=== PATIENT | female | born 1980 | race Caucasian/White ===

== ENCOUNTER 2017-04-22 07:33 | Emergency (ER) | payer MEDICAID ==
[2017-04-22] MEDS ORDERED: ORPHENADRINE CITRATE 30 MG/ML VIAL IM ONE (08:09)
[2017-04-22] MEDS ORDERED: ORPHENADRINE CITRATE 30 MG/ML VIAL ONE (08:18)
[2017-04-22 08:30] LABS: Hematocrit 34.2 % (37.0-47.0); Hemoglobin 11.3 gm/dL (12.5-16.0); Mean Cell Volume 93.7 fl (78-100); Mean Platelet Volume 10.5 fl (6.0-9.5); Neutrophil # 13.6 K/mm3 (1.3-6.0); Neutrophil % 83.9 % (42-75.0); Platelet Count 316 K/mm3 (150-450); Red Blood Count 3.65 M/mm3 (4.2-5.4); Red Cell Distribution Width 12.9 % (11.5-14.0); White Blood Count 16.2 K/mm3 (4.0-10.5)
--- NOTE | 2017-04-22 08:41 | ERNOTE ---
Date of Service: 04/22/17 Time Seen by Provider: 04/22/17 08:03 Stated Complaint: RIGHT SIDE/SHOULDER, SOB/HAS BRONCHITIS Presenting Symptoms:: cough Source: patient Immunizations: IMMUNIZATION HX Immunizations Up to Date Yes History of Influenza Vaccine No Hx Pneumococcal Vaccination No Allergies/Adverse Reactions: Allergies carisoprodol [From Soma] Allergy (Severe, Verified 04/22/17 07:49) Anaphylaxis Home Medications: HOME MEDICATIONS Insulin Lispro [Humalog] 10 unit SQ HS 10/31/12 [Last Taken Unknown] Lisdexamfetamine Dimesylate [Vyvanse] 40 mg PO DAILY 12/30/15 [Last Taken Unknown] OLANZapine [Zyprexa] 20 mg PO DAILY 12/30/15 [Last Taken Unknown] Albuterol Sulfate [Proair Hfa] 2 puff IH Q4H PRN #1 inhaler 04/22/17 [Last Taken Unknown] HYDROcodone/ACETAMINOPHEN [[place] 5-325] 1 tab PO Q8H PRN #20 tab 04/22/17 [Last Taken Unknown] Levofloxacin [Levaquin] 500 mg PO DAILY #14 tab 04/22/17 [Last Taken Unknown] Pantoprazole Sodium [Protonix] 20 mg PO DAILY 04/22/17 [Last Taken Unknown] oxyCODONE HCL/ACETAMINOPHEN [Percocet 5 MG/325 MG] 1 tab PO BID 04/22/17 [Last Taken Unknown] - History of Present Ilness Narrative: Patient presents to the ED with right sided pain. She has been sick since April 13. This started with a cough and fever. Fever was 103. This lasted for 3 days, the fever went away but the cough and right sided CP continued. She was seen Friday by her doctor and stated on PCN for the cough. She presents primaryl for right sided CP that is worse with movement, cough and deep breathing. Right sided CP is noted to be severe. She is immediately requesting pain medications. Her cough is productive and she feels like she is wheezing. No true SOB. Right sided CP is her entire right chest. COnstant for well over 1 week. Timing: constant Severity: severe Frequency/Possible Cause: Reports: other - Illness Modifying Factors - Improves: Reports: nothing Modifying Factors - Worsens: Reports: coughing, deep breath Associated Symptoms: Reports: cough Prior Treatment: Reports: recently seen, treated by physician Review of Systems - Review of Systems Constitutional: Present: fever ENT: Present: nose congestion Respiratory: Present: cough Cardiology: Present: chest pain Gastrointestinal/Abdominal: Absent: abdominal pain Genitourinary: Absent: dysuria Musculoskeletal: Present: See HPI Skin: Absent: rash Neurological: Absent: weakness - Patient's Past Medical History Patient History - Medical: ADHD, Bipolar, Diabetes Type 2 Insulin Dependent Patient History - Cardiac/Respiratory: Asthma, Bronchitis Patient History - Cancer: No Hx of Cancer Patient History - Surgical Procedures: No surgical history, Other Patient History - Other: None LMP (females 10-50): 1 month - Social History Living Situations: significant other Abuse History: No History of abuse Psych History: Hx of Depression, Hx of Bipolar Disorder Smoking Status: Current every day smoker Have you smoked in the past 12 months: Yes Do you dip or chew tobacco: No Alcohol Use: none Drug Use: none - Immunizations Immunizations Up to Date: Yes Hx Pneumococcal Vaccination: No History of Influenza Vaccine: No Physical Exam - Physical Exam General Appearance: Present: alert, other - frequent harsh cough. No other distress. Speaking in full sentences. Head Exam: Present: normal inspection, no evidence of injury Eye Exam: Normal inspection: bilateral, PERRL: bilateral Ears, Nose, Throat: Present: normal ENT inspection Neck: Present: normal inspection Respiratory: Present: no respiratory distress, normal breath sounds, no accessory muscle use, lungs clear Cardiovascular/Chest: Present: regular rate, rhythm, normal peripheral pulses, chest tenderness, other - there is significant tenderness right chest wall. this seems to reproduce her pain Gastrointestinal/Abdominal: Present: normal bowel sounds, nontender, nondistended, soft, no organomegaly Back Exam: Present: normal range of motion Extremity Exam: Present: normal inspection, other - no DVT findings Neurological Exam: Present: alert, normal mood/affect, no motor/sensory deficits Skin Exam: Present: normal color, warm/dry ED Progress - Results and Orders Patient's Lab Results:: I have reviewed the patient's lab results. - Vital Signs Patient's Vital Signs:: I have reviewed the patient's vital signs. Vital Signs: Vital Signs 04/22/17 07:43 Pulse Rate 101 H Respiratory 18 Rate Blood Pressure 153/82 O2 Sat by Pulse 100 Oximetry - EKG EKG: NSR EKG read: Interp. by me EKG Comments: NSR rate 82. Non-specific ST/T wave changes, no STEMI - X-Ray X-Ray #1 X-Ray: chest Interpretation: Interp. by me X-ray Comments: I reviewed official radiology report - CT/Ultrasound CT/Ultrasound Narrative: I reviewed official CT radiology report - Progress/Reassessment Chief Complaint: Cough Progress Note-Subjective: 04/22/17 13:31 Patient did not take her insulin, her home insulin was given and her BS came down nicely. No evidence of DKA. She has pneumonia and I gave IV Abx. No hypoxia or respiratory distress. Nothing to suggest PE, aortic dissection or ACS. Her Sx are pleuritic and also musculoskeletal in nature. I ofered her observation but she declines this and wishes to go home. Understands risks and benefits. Will treat with Levaquin and pain meds and I stressed need for office f/u with PCP in 1-2 days for a re-check. I discussed warnign signs and reasons to return as well as the need for close f/u. Pneumonia with pleural effusion, no other clear acute life threats found at this time. Departure Clinical Impression: Pleurisy, Pneumonia - Departure Disposition: Home self-care Condition: Stable Instructions: Pleurisy, [id number], Community-Acquired Pneumonia, Adult, Easy -to-Read Additional Instructions: Rest. Fluids. Take your scheduled insulin as directed. Stop current antibiotic and begin new antibiotic. No driving with pain medications. Follow- up with your doctor in 1-2 days for a re-check. Return if you change your mind about observation, develop fever, trouble breathing or if your condition worsens or changes in any way. Referrals: Elio Huntley MD [Primary Care Provider] - Prescriptions: Albuterol Sulfate [Proair Hfa] 2 puff IH Q4H PRN #1 inhaler PRN Reason: Shortness Of Breath HYDROcodone/ACETAMINOPHEN [[place] 5-325] 1 tab PO Q8H PRN #20 tab PRN Reason: Pain Levofloxacin [Levaquin] 500 mg PO DAILY #14 tab
[2017-04-22 08:49] LABS: ALT 28 U/L (19-67); AST 23 U/L (0-48); Albumin * 2.3 gm/dl (3.4-5.0); Alkaline Phosphatase * 177 U/L (50-170); Anion Gap 11.4 mmol/L (6.8-13.8); BUN/Creatinine Ratio 11.7 (9.0-21.6); Bilirubin, Total 0.1 mg/dL (0.0-1.1); Blood Urea Nitrogen 11 mg/dL (3-23); Ca. Corrected For Albumin 10.2 mg/dL (8.4-10.2); Calcium * 9.2 mg/dL (7.9-10.9); Chloride 96 mmol/L (97-106); Lipase 55 U/L (73-393); Potassium 4.4 mmol/L (3.4-4.6); Sodium 129 mmol/L (132-142); Total Protein 6.9 gm/dL (6.2-8.2)
[2017-04-22 08:50] LABS: Troponin I Less than 0.017 ng/ml (0.00-0.10)
[2017-04-22 08:54] LABS: Urine Bilirubin Negative (NEGATIVE); Urine Blood Negative /ul (NEGATIVE); Urine Ketone Negative (NEGATIVE); Urine Nitrite Negative (NEGATIVE); Urine Protein Negative (NEGATIVE); Urine Specific Gravity <=1.005 SP.GR. (1.005-1.010); Urine Urobilinogen Normal (NORMAL)
[2017-04-22 09:05] LABS: Urine Appearance Clear; Urine Bacteria None Seen; Urine Color Pale Yellow; Urine RBC None Seen /hpf (0-5); Urine WBC None Seen /hpf (0-5)
[2017-04-22] MEDS ORDERED: MORPHINE SULFATE 4 MG/ML SYRG IV ONE ×2 (09:05→12:52)
[2017-04-22 09:06] LABS: Glucose * 816 mg/dL (70-110)
[2017-04-22] MEDS ORDERED: NORMAL SALINE 1,000 ML IV ONE (09:06)
[2017-04-22] MEDS ORDERED: KETOROLAC TROMETHAMINE 30 MG/ML VIAL IV ONE (09:13)
[2017-04-22] MEDS ORDERED: KETOROLAC TROMETHAMINE 30 MG/ML VIAL ONE (09:26)
[2017-04-22] MEDS ORDERED: MORPHINE SULFATE 4 MG/ML SYRG ONE ×3 (09:26→13:12)
[2017-04-22] MEDS ORDERED: INSULIN LISPRO 100 UNITS/ML VIAL SC ONE (09:50)
[2017-04-22] MEDS ORDERED: INSULIN LISPRO PROTAMIN/LISPRO 100 UNITS/ML VIAL SC ONE (10:00)
[2017-04-22] MEDS ORDERED: INSULIN LISPRO 100 UNITS/ML VIAL ONE (10:35)
[2017-04-22] MEDS ORDERED: ONDANSETRON HCL/PF 2 MG/ML VIAL IV ONE (10:44)
[2017-04-22] MEDS ORDERED: ONDANSETRON HCL/PF 2 MG/ML VIAL ONE (10:46)
[2017-04-22] MEDS ORDERED: ALBUTEROL SULFATE/IPRATROPIUM 3 ML NEBU IH ONE ×2 (11:44→11:45)
[2017-04-22] MEDS ORDERED: LEVOFLOXACIN/D5W 500 MG/100 ML BAG IV SCH (13:00)
[2017-04-22 13:52] VITALS: BP 101/47
== END 2017-04-22 14:21 | disposition home or self-care (01) ==
LOC: ER 07:33
DX: R09.1 Pleurisy (principal); J18.9 Pneumonia, unspecified organism; F17.200 Nicotine dependence, unspecified, uncomplicated
CPT/HCPCS: 36415; 71020; 71275; 80053; 81001; 82009; 83690; 84484; 85025; 85379; 93005; 94640; 96365; 96372; 96375; 99284; G0481; J2405

== ENCOUNTER 2019-02-27 14:48 | Inpatient (IN) ==
[2019-02-27] MEDS ORDERED: NORMAL SALINE 1,000 ML IV ONE ×4 (15:15→20:22)
[2019-02-27] MEDS ORDERED: diphenhydrAMINE HCL 50 MG/ML VIAL IV ONE ×2 (15:16→17:00)
[2019-02-27] MEDS ORDERED: PROCHLORPERAZINE EDISYLATE 5 MG/ML VIAL IV ONE (15:16)
[2019-02-27] MEDS ORDERED: KETOROLAC TROMETHAMINE 30 MG/ML VIAL IV ONE (15:17)
--- NOTE | 2019-02-27 15:17 | ERNOTE ---
Medical Problem HPI - Narrative Date of Service: 02/27/19 - General Chief Complaint: Diabetes Related Problem Time Seen by Provider: 02/27/19 15:06 Source: patient Exam Limitations: no limitations - Immun/Allergies/Home Medications Immunizations: IMMUNIZATION HX Immunizations Up to Date Yes History of Influenza Vaccine Yes Hx Pneumococcal Vaccination Yes Allergies/Adverse Reactions: Allergies carisoprodol [From Soma] Allergy (Severe, Verified 02/27/19 15:00) Anaphylaxis Home Medications: HOME MEDICATIONS Insulin Lispro [Humalog] 85 unit SQ HS 10/31/12 [Last Taken Unknown] Lisdexamfetamine Dimesylate [Vyvanse] 40 mg PO DAILY 12/30/15 [Last Taken Unknown] OLANZapine [Zyprexa] 20 mg PO DAILY 12/30/15 [Last Taken Unknown] Albuterol Sulfate [Proair Hfa] 2 puff IH Q4H PRN #1 inhaler 04/22/17 [Last Taken Unknown] Levofloxacin [Levaquin] 500 mg PO DAILY #14 tab 04/22/17 [Last Taken Unknown] Pantoprazole Sodium [Protonix] 20 mg PO DAILY 04/22/17 [Last Taken Unknown] Ranitidine HCl 300 mg PO BID 02/27/19 [Last Taken Unknown] - History of Present History Narrative: Patient presents to the ED for "DKA". SHe relates that her blood sugars are out of control She states she has been taking her Insulin but another person in the room told the nurse that likely was not the case. She tells me that she suffers with bipolar and that makes controlling her blood sugar hard. Was just admitted [facility] recently. No vomiting. Hurts "all over". No specific SP or SOB. Diffuse abdominal pain. No cough or fever. Nothign seems to make this better or worse. She is requesting something for pain. Timing: constant, getting worse Severity: severe Modifying Factors - (Improves): Present: other - nothing Modifying Factors - (Worsens): Present: other - nothing Review of Systems - Review of Systems Constitutional: Absent: fever EYE: Absent: vision changes ENT: Absent: sore throat Respiratory: Absent: shortness of breath Cardiology: Absent: chest pain Gastrointestinal/Abdominal: Present: abdominal pain Genitourinary: Absent: dysuria Musculoskeletal: Present: See HPI Skin: Absent: rash Neurological: Absent: weakness All Other Systems: All systems neg except as marked Medical History (Updated 02/27/19 @ 15:00 by Penny Ngo RN) ADD (attention deficit disorder) Anxiety Bipolar depression Diabetes Pancreatitis Surgical History: Surgical History (Updated 02/27/19 @ 15:00 by Penny Ngo RN) History of carpal tunnel surgery History of pancreatic surgery History of tubal ligation Family History: Family History (Updated 02/27/19 @ 15:00 by Penny Ngo RN) Other No pertinent family history Social History: (Last Reviewed 02/27/19 @ 18:34 by Pieter Cruz MD) Tobacco: Smoking Status: Current every day smoker Smoking cigarettes per day: 20 Alcohol: alcohol intake: never Substance Use: substance use type: does not use Physical Exam - Physical Exam General Appearance: Present: alert, mild distress Head Exam: Present: normal inspection, no evidence of injury Eye Exam: Normal inspection: bilateral, PERRL: bilateral Ears, Nose, Throat: Present: dry mucous membranes. Absent: pharyngeal erythema Neck: Present: normal inspection Respiratory: Present: no respiratory distress, normal breath sounds, no accessory muscle use, lungs clear Cardiovascular/Chest: Present: normal peripheral pulses, tachycardia Gastrointestinal/Abdominal: Present: normal bowel sounds, nondistended, soft, other - mild diffuse tenderness to deep palpation. No guarding or rebound, no peritoneal signs Back Exam: Absent: CVA tenderness (R), CVA tenderness (L) Extremity Exam: Present: normal inspection, normal range of motion Neurological Exam: Present: alert, no motor/sensory deficits Skin Exam: Present: normal color, warm/dry Progress - Results and Orders Patient's Lab Results:: I have reviewed the patient's lab results. - Vital Signs Patient's Vital Signs:: I have reviewed the patient's vital signs. Vital Signs: Vital Signs 02/27/19 14:49 Temperature 35.5 C L Pulse Rate 112 H Respiratory Rate 18 Blood Pressure 132/106 H O2 Sat by Pulse Oximetry 99 - EKG EKG #1 EKG: NSR EKG read: Interp. by or EKG Comments: NSR rate 90. Non-specific ST/T wave changes, no STEMI noted - X-Ray X-Ray #1 X-Ray: chest Interpretation: Interp. by me X-ray Comments: I reviewed the official radiology report - CT/Ultrasound CT/Ultrasound Narrative: I reviewed the official radiology report for CT abd/pelvis - Progress/Reassessment Chief Complaint: Diabetes Related Problem Progress Note-Subjective: 02/27/19 18:36 IV fluids given X 3L. IV insulin bolus and IV insulin drip. No Toradol was given. Dehydrated. No other inciting causes found. D/W Dr Gurrola who will admit. Patient agreeable. Departure Clinical Impression: Hyperosmolar non-ketotic state in patient with type 2 diabetes mellitus, Hyperglycemia due to type 2 diabetes mellitus, LIDA (acute kidney injury), Dehydration, Elevated lactic acid level, Abdominal pain - Departure Disposition: Still a patient Condition: Fair Referrals: Elio Huntley MD [Primary Care Provider] -
[2019-02-27] MEDS ORDERED: ACETAMINOPHEN 1,000 MG/100 ML BTL IV ONE (15:26)
[2019-02-27 15:41] LABS: Hematocrit 52.5 % (37.0-47.0); Hemoglobin 15.4 gm/dL (12.5-16.0); Mean Cell Volume 106.9 fl (78-100); Mean Corpuscular Hemoglobin 31.4 pg (27-31); Mean Corpuscular Hgb Conc 29.3 g/dl (32-36); Mean Platelet Volume 12.3 fl (8-12.5); Neutrophil # 6.5 K/mm3 (1.3-6.0); Neutrophil % 86.2 % (42-75.0); Platelet Count 303 K/mm3 (150-450); Red Blood Count 4.91 M/mm3 (4.2-5.4); Red Cell Distribution Width 13.4 % (11.5-14.0); White Blood Count 7.6 K/mm3 (4.0-10.5)
[2019-02-27 15:51] LABS: Urine Appearance Clear (CLEAR); Urine Color Yellow
[2019-02-27 15:52] LABS: Urine Bilirubin Negative (NEGATIVE); Urine Blood Negative /ul (NEGATIVE); Urine Ketone Negative (NEGATIVE); Urine Nitrite Negative (NEGATIVE); Urine Protein Negative (NEGATIVE); Urine Specific Gravity 1.005 SP.GR. (1.005-1.010); Urine Urobilinogen Normal (NORMAL); Urine pH 5.5 pH (5.0-7.0)
[2019-02-27 15:53] LABS: Urine Bacteria None Seen; Urine RBC None Seen /hpf (0-5); Urine WBC 0-5 /hpf (0-5)
[2019-02-27 15:54] LABS: Hemoglobin A1C 11.5 % (4.00-6.0)
[2019-02-27 16:05] LABS: Cocaine Ur Negative (NEGATIVE); Urine Barbiturate Negative (NEGATIVE); Urine Benzodiazepines Negative (NEGATIVE); Urine Opiates Negative (NEGATIVE); Urine PCP Negative (NEGATIVE); Urine THC Negative (NEGATIVE)
[2019-02-27 16:11] LABS: AST 24 U/L (0-48); Albumin * 4.1 gm/dl (3.4-5.0); Alkaline Phosphatase * 246 U/L (50-170); Anion Gap 22.9 mmol/L (6.8-13.8); BUN/Creatinine Ratio 13.5 (9.0-21.6); Bilirubin, Total 0.1 mg/dL (0.0-1.1); Blood Urea Nitrogen 27 mg/dL (3-23); Ca. Corrected For Albumin 9.4 mg/dL (8.4-10.2); Calcium * 9.8 mg/dL (7.9-10.9); Carbon Dioxide 20.6 mmol/L (24-32.6); Chloride 81 mmol/L (97-106); Lipase 42 U/L (73-393); Potassium 4.5 mmol/L (3.4-4.6); Total Protein 8.3 gm/dL (6.2-8.2)
[2019-02-27 16:15] LABS: Glucose * 1594 mg/dL (70-110); Sodium 120 mmol/L (132-142)
[2019-02-27] MEDS ORDERED: INSULIN REGULAR, HUMAN 100 UNITS/ML VIAL IV ONE (16:16)
[2019-02-27] MEDS ORDERED: INSULIN REGULAR, HUMAN 100 UNITS in NORMAL SALINE 100 ML IV PRN ×4 (16:16→20:26)
[2019-02-27 16:20] LABS: ALT 32 U/L (19-67)
[2019-02-27] MEDS ORDERED: MORPHINE SULFATE 4 MG/ML SYRG IV ONE (16:37)
[2019-02-27] MEDS ORDERED: ACETAMINOPHEN 325 MG TABLET PO PRN (19:38)
[2019-02-27 19:40] LABS: Albumin * 3.5 gm/dl (3.4-5.0); Anion Gap 23.5 mmol/L (6.8-13.8); BUN/Creatinine Ratio 14.6 (9.0-21.6); Bilirubin, Total 0.2 mg/dL (0.0-1.1); Ca. Corrected For Albumin 9.3 mg/dL (8.4-10.2); Calcium * 9.2 mg/dL (7.9-10.9); Carbon Dioxide 14.8 mmol/L (24-32.6); Potassium 4.3 mmol/L (3.4-4.6); Total Protein 7.3 gm/dL (6.2-8.2)
[2019-02-27] MEDS ORDERED: NICOTINE 21 MG PATC TD SCH (19:45)
--- NOTE | 2019-02-27 20:12 | HP ---
Chief Complaint - Chief Complaint Date of Service: 02/27/19 Time of Service: 20:08 History of Present Illness: Naya Cain is a 38-year-old white female with past medical history of diabetes mellitus type 1, bipolar disorder, ADD, chronic pancreatitis who was admitted on 02/27/2019 after presenting to the emergency room with a chief complaint "I think I have DKA". The patient just recently got discharged from "[facility] presumably for DKA 9 days ago. The patient says that because of her depression/bipolar disorder she sleeps most of the time and forgets to fill her insulin pump with medicine. Her blood sugar mostly are out of control. She denies any nausea or vomiting, diarrhea or constipation, shortness of breath, chest pain, fever or chills but admits to diffuse abdominal pain and hurting all over. In the emergency room her blood sugar was 1594, creatinine of 2, anion gap of 22.9, CO2 20.6, lactic acid of 12.5, HbA1c of 11.5 equivalent to mean blood glucose of 297, lipase of 42, normal WBC. She was negative for ketones in the serum and in the urine. Her urine drug screen was negative. Her ABG showed a pH of 7.39, PCO2 of 15.5, oxygen of 145.1, HCO3 of 9.2, oxygen saturation of 98.9%. She was given 10 units of IV regular insulin in the ER and was started on insulin drip. She was then admitted to the SCU unit. Medical History (Updated 02/27/19 @ 21:08 by Hilda Gurrola MD) ADD (attention deficit disorder) Anxiety Bipolar depression Diabetes Pancreatitis Surgical History: Surgical History (Updated 02/27/19 @ 15:00 by Penny Ngo RN) History of carpal tunnel surgery History of pancreatic surgery History of tubal ligation Family History: Family History (Updated 02/27/19 @ 15:00 by Penny Ngo RN) Other No pertinent family history Social History: (Last Reviewed 02/27/19 @ 18:34 by Pieter Cruz MD) Tobacco: Smoking Status: Current every day smoker Smoking cigarettes per day: 20 Alcohol: alcohol intake: never Substance Use: substance use type: does not use Review Of Systems (GEN) - Review of Systems Generalized/Overall Review: Absent: Weakness, Chills, Fever EENTM: Absent: Blurred Vision Respiratory: Absent: Cough, Shortness of Breath, Orthopnea Cardiac: Absent: Chest Pain, Edema, Palpitations Abdominal: Present: Abdominal Pain. Absent: Nausea, Vomiting, Hematemesis Genitourinary: Absent: Urgency, Frequency Musculoskeletal: Present: Other - pain all over Neurological: Present: Anxiety, Depressed. Absent: Headache Skin: Absent: Lesions, Rash Endocrine: Present: Increased Hunger Immunizations: IMMUNIZATION HX Immunizations Up to Date Yes History of Influenza Vaccine Yes Hx Pneumococcal Vaccination Yes Allergies/Adverse Reactions: Allergies Allergy/AdvReac Type Severity Reaction Status Date / Time carisoprodol [From Soma] Allergy Severe Anaphylaxis Verified 02/27/19 15:00 Home Medications: HOME MEDICATIONS Lisdexamfetamine Dimesylate [Vyvanse] 40 mg PO DAILY 12/30/15 [Last Taken Unknown] OLANZapine [Zyprexa] 20 mg PO DAILY 12/30/15 [Last Taken Unknown] Albuterol Sulfate [Proair Hfa] 2 puff IH Q4H PRN #1 inhaler 04/22/17 [Last Taken Unknown] Ranitidine HCl 300 mg PO BID 02/27/19 [Last Taken Unknown] Exam - Exam Vital Signs: Vital Signs - Last Taken Temp 36.6 C 02/27/19 18:36 Pulse 88 02/27/19 18:49 Resp 14 02/27/19 18:49 BP 110/63 02/27/19 18:49 Pulse Ox 96 02/27/19 18:49 Constitutional: Present: Alert, Oriented x3, Cooperative ENT Exam: Present: hearing grossly normal Eye Exam: bilateral eye: normal inspection, PERRL, EOMI Neck: Present: supple. 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 nml as tested, no motor/sensory deficits, oriented x 3 Diagnostic Studies: Abnormal Lab Results 02/27/19 02/27/19 02/27/19 Range/Units 15:25 15:25 15:25 Hct 52.5 H (37.0-47.0) % MCV 106.9 H (78-100) fl MCH 31.4 H (27-31) pg MCHC 29.3 L (32-36) g/dl Neutrophils % 86.2 H (42-75.0) % Lymphocytes % 9.9 L (20-51) % Neutrophils # 6.5 H (1.3-6.0) K/mm3 Lymphocytes # 0.75 L (1.5-3.5) k/mm3 pCO2 (32.0-45.0) mmHg pO2 (83.0-108.0) mmHg HCO3 (21.0-28.0) mmol/L Total CO2 (19.0-24.0) mmol/L Base Excess (-2.0-3.0) mmol/L ABG O2 Sat (Measured) (94.0-98.0) % Sodium 120 L (132-142) mmol/L Plasma Sodium 144 H (130-142) mmol/L Chloride 81 L (97-106) mmol/L Carbon Dioxide 20.6 L (24-32.6) mmol/L Anion Gap 22.9 H (6.8-13.8) mmol/L BUN 27 H (3-23) mg/dL Creatinine 2.00 H (0.4-1.4) mg/dL Est GFR (Non-Af Amer) 30 L D (60-130) mL/min Random Glucose 1594 H (70-110) mg/dL Hemoglobin A1c (4.00-6.0) % Lactic Acid, Venous 12.5 H* (0.4-2.0) mmol/L Alkaline Phosphatase 246 H (50-170) U/L Total Protein 8.3 H (6.2-8.2) gm/dL Lipase 42 L (73-393) U/L Urine Glucose (UA) (NEGATIVE) mg/dL 02/27/19 02/27/19 02/27/19 Range/Units 15:25 15:44 15:47 Hct (37.0-47.0) % MCV (78-100) fl MCH (27-31) pg MCHC (32-36) g/dl Neutrophils % (42-75.0) % Lymphocytes % (20-51) % Neutrophils # (1.3-6.0) K/mm3 Lymphocytes # (1.5-3.5) k/mm3 pCO2 15.5 L* (32.0-45.0) mmHg pO2 145.1 H (83.0-108.0) mmHg HCO3 9.2 L (21.0-28.0) mmol/L Total CO2 9.7 L (19.0-24.0) mmol/L Base Excess -12.5 L (-2.0-3.0) mmol/L ABG O2 Sat (Measured) 98.9 H (94.0-98.0) % Sodium (132-142) mmol/L Plasma Sodium (130-142) mmol/L Chloride (97-106) mmol/L Carbon Dioxide (24-32.6) mmol/L Anion Gap (6.8-13.8) mmol/L BUN (3-23) mg/dL Creatinine (0.4-1.4) mg/dL Est GFR (Non-Af Amer) (60-130) mL/min Random Glucose (70-110) mg/dL Hemoglobin A1c 11.5 H (4.00-6.0) % Lactic Acid, Venous (0.4-2.0) mmol/L Alkaline Phosphatase (50-170) U/L Total Protein (6.2-8.2) gm/dL Lipase (73-393) U/L Urine Glucose (UA) >=1000 H (NEGATIVE) mg/dL 02/27/19 Range/Units 18:15 Hct (37.0-47.0) % MCV (78-100) fl MCH (27-31) pg MCHC (32-36) g/dl Neutrophils % (42-75.0) % Lymphocytes % (20-51) % Neutrophils # (1.3-6.0) K/mm3 Lymphocytes # (1.5-3.5) k/mm3 pCO2 (32.0-45.0) mmHg pO2 (83.0-108.0) mmHg HCO3 (21.0-28.0) mmol/L Total CO2 (19.0-24.0) mmol/L Base Excess (-2.0-3.0) mmol/L ABG O2 Sat (Measured) (94.0-98.0) % Sodium (132-142) mmol/L Plasma Sodium (130-142) mmol/L Chloride (97-106) mmol/L Carbon Dioxide (24-32.6) mmol/L Anion Gap (6.8-13.8) mmol/L BUN (3-23) mg/dL Creatinine (0.4-1.4) mg/dL Est GFR (Non-Af Amer) (60-130) mL/min Random Glucose (70-110) mg/dL Hemoglobin A1c (4.00-6.0) % Lactic Acid, Venous 9.0 H* (0.4-2.0) mmol/L Alkaline Phosphatase (50-170) U/L Total Protein (6.2-8.2) gm/dL Lipase (73-393) U/L Urine Glucose (UA) (NEGATIVE) mg/dL Laboratory Results WBC 7.6 K/mm3 (4.0-10.5) 02/27/19 15:25 RBC 4.91 M/mm3 (4.2-5.4) 02/27/19 15:25 Hgb 15.4 gm/dL (12.5-16.0) 02/27/19 15:25 Hct 52.5 % (37.0-47.0) H 02/27/19 15:25 MCV 106.9 fl (78-100) H 02/27/19 15:25 MCH 31.4 pg (27-31) H 02/27/19 15:25 MCHC 29.3 g/dl (32-36) L 02/27/19 15:25 RDW 13.4 % (11.5-14.0) 02/27/19 15:25 Plt Count 303 K/mm3 (150-450) 02/27/19 15:25 MPV 12.3 fl (8-12.5) 02/27/19 15:25 Immature Gran % (Auto) 0.40 % (0.001-0.429) 02/27/19 15:25 Immature Gran # (Auto) 0.03 K/mm3 (0.000-0.0310) 02/27/19 15:25 86.2 % (42-75.0) H 02/27/19 15:25 9.9 % (20-51) L 02/27/19 15:25 3.2 % (0.0-9) 02/27/19 15:25 0.0 % (0.0-3.0) 02/27/19 15:25 0.3 % (0.0-1.0) 02/27/19 15:25 Nucleated RBC % 0.0 k/mm3 (0-1) 02/27/19 15:25 6.5 K/mm3 (1.3-6.0) H 02/27/19 15:25 0.75 k/mm3 (1.5-3.5) L 02/27/19 15:25 0.2 k/mm3 (0.0-1.0) 02/27/19 15:25 0.0 k/mm3 (0.0-0.7) 02/27/19 15:25 Absolute Basophils 0.0 k/mm3 (0.0-0.1) 02/27/19 15:25 pCO2 15.5 mmHg (32.0-45.0) L* 02/27/19 15:47 pO2 145.1 mmHg (83.0-108.0) H 02/27/19 15:47 HCO3 9.2 mmol/L (21.0-28.0) L 02/27/19 15:47 Total CO2 9.7 mmol/L (19.0-24.0) L 02/27/19 15:47 Base Excess -12.5 mmol/L (-2.0-3.0) L 02/27/19 15:47 ABG pH 7.39 (7.35-7.45) 02/27/19 15:47 ABG O2 Sat (Measured) 98.9 % (94.0-98.0) H 02/27/19 15:47 Sodium 120 mmol/L (132-142) L 02/27/19 15:25 144 mmol/L (130-142) H 02/27/19 15:25 Potassium 4.5 mmol/L (3.4-4.6) 02/27/19 15:25 Chloride 81 mmol/L (97-106) L 02/27/19 15:25 Carbon Dioxide 20.6 mmol/L (24-32.6) L 02/27/19 15:25 22.9 mmol/L (6.8-13.8) H 02/27/19 15:25 BUN 27 mg/dL (3-23) H 02/27/19 15:25 2.00 mg/dL (0.4-1.4) H 02/27/19 15:25 Est GFR (Non-Af Amer) 30 mL/min (60-130) L D 02/27/19 15:25 13.5 (9.0-21.6) 02/27/19 15:25 1594 mg/dL (70-110) H 02/27/19 15:25 297 mg/dL 02/27/19 15:25 11.5 % (4.00-6.0) H 02/27/19 15:25 9.0 mmol/L (0.4-2.0) H* 02/27/19 18:15 Calcium 9.8 mg/dL (7.9-10.9) 02/27/19 15:25 Calcium Adj for Albumin 9.4 mg/dL (8.4-10.2) 02/27/19 15:25 Magnesium 2.0 mg/dL (1.2-2.8) 02/27/19 15:25 0.1 mg/dL (0.0-1.1) 02/27/19 15:25 AST 24 U/L (0-48) 02/27/19 15:25 ALT 32 U/L (19-67) 02/27/19 15:25 246 U/L (50-170) H 02/27/19 15:25 8.3 gm/dL (6.2-8.2) H 02/27/19 15:25 4.1 gm/dl (3.4-5.0) 02/27/19 15:25 42 U/L (73-393) L 02/27/19 15:25 Serum HCG, Qual Negative (NEGATIVE) 02/27/19 15:25 Yellow 02/27/19 15:44 Clear (CLEAR) 02/27/19 15:44 5.5 pH (5.0-7.0) 02/27/19 15:44 Ur Specific [place] 1.005 SP.GR. (1.005-1.010) 02/27/19 15:44 Negative mg/dL (NEGATIVE) 02/27/19 15:44 >=1000 mg/dL (NEGATIVE) H 02/27/19 15:44 Negative mg/dL (NEGATIVE) 02/27/19 15:44 Negative /ul (NEGATIVE) 02/27/19 15:44 Negative (NEGATIVE) 02/27/19 15:44 Negative mg/dl (NEGATIVE) 02/27/19 15:44 Normal EU/dl (NORMAL) 02/27/19 15:44 Ur Leukocyte Esterase Negative /ul (NEGATIVE) 02/27/19 15:44 None seen /hpf (0-5) 02/27/19 15:44 0-5 /hpf (0-5) 02/27/19 15:44 Ur Epithelial Cells None seen /hpf (0-5) 02/27/19 15:44 None seen (NONE) 02/27/19 15:44 No culture indicated 02/27/19 15:44 Negative (NEGATIVE) 02/27/19 15:44 Negative (NEGATIVE) 02/27/19 15:44 Ur Phencyclidine Scrn Negative (NEGATIVE) 02/27/19 15:44 Urine Amphetamine Negative (NEGATIVE) 02/27/19 15:44 U Benzodiazepines Scrn Negative (NEGATIVE) 02/27/19 15:44 Negative (NEGATIVE) 02/27/19 15:44 Negative (NEGATIVE) 02/27/19 15:44 Ethyl Alcohol Less than 3.0 mg/dL (0.0-10.0) 02/27/19 15:25 Negative (NEGATIVE) 02/27/19 15:25 Assessment/Plan - Narrative Narrative: Connie Cain is a 38-year-old white female was admitted for hyperosmolar nonketotic hyperglycemic state without coma due to missed medications. She was given 10 units of regular insulin and started on insulin drip at 7 units/h in the emergency room. Her follow-up blood sugar was 872 in the unit. She is hungry and is wanting to eat. We will allow her to eat now and adjust her insulin drip as she is not in ketoacidosis. We will continue with her insulin drip and IV fluids. We will try not to drop her blood sugar by more than 70 mg/DL /hour. We will likely start her on SQ insulin before before her meals in the morning and then later put her back in her insulin pump. We will need to get her insulin pump dosage. - Assessment/Plan (1) Diabetic hyperosmolar non-ketotic state Assessment: in DM type 1. Problem: Acute (2) LIDA (acute kidney injury) Problem: Acute (3) Dehydration Problem: Acute (4) Elevated lactic acid level Problem: Acute (5) Abdominal pain Problem: Acute
[2019-02-27] MEDS: NORMAL SALINE IV SCH (21:31)
[2019-02-27] MEDS: POTASSIUM CHLORIDE IV SCH (21:31)
[2019-02-27 22:08] LABS: Anion Gap 11.8 mmol/L (6.8-13.8); Calcium * 8.6 mg/dL (7.9-10.9); Carbon Dioxide 26.3 mmol/L (24-32.6); Potassium 4.1 mmol/L (3.4-4.6)
[2019-02-27] MEDS ORDERED: traZODone HCL 150 MG TABLET PO SCH (23:00)
[2019-02-27] MEDS ORDERED: OLANZapine 5 MG TABLET PO SCH (23:00)
[2019-02-27] MEDS ORDERED: DOXEPIN HCL 25 MG CAPSULE PO SCH (23:00)
[2019-02-27] MEDS ORDERED: traZODone HCL 50 MG TABLET PO SCH (23:00)
[2019-02-28] MEDS: DEXTROSE 5%-0.5 NORMAL SALINE 1,000 ML IV PRN ×2 (01:15→06:32)
[2019-02-28 05:50] LABS: Hematocrit 31.6 % (37.0-47.0); Hemoglobin 10.9 gm/dL (12.5-16.0); Mean Cell Volume 89.8 fl (78-100); Mean Corpuscular Hgb Conc 34.5 g/dl (32-36); Neutrophil # 6.3 K/mm3 (1.3-6.0); Neutrophil % 53.1 % (42-75.0); Platelet Count 195 K/mm3 (150-450); Red Blood Count 3.52 M/mm3 (4.2-5.4); Red Cell Distribution Width 12.6 % (11.5-14.0); White Blood Count 11.9 K/mm3 (4.0-10.5)
[2019-02-28 06:11] LABS: Anion Gap 9.3 mmol/L (6.8-13.8); BUN/Creatinine Ratio 16.7 (9.0-21.6); Calcium * 7.8 mg/dL (7.9-10.9); Potassium 3.3 mmol/L (3.4-4.6)
[2019-02-28] MEDS: INSULIN LISPRO 100 UNITS/ML VIAL SC SCH ×2 (06:59→12:00)
[2019-02-28] MEDS ORDERED: POTASSIUM CHLORIDE 10 MEQ TABLET.SA PO ONE (07:39)
[2019-02-28] MEDS ORDERED: NORMAL SALINE 500 ML IV ONE ×2 (09:22→10:41)
--- NOTE | 2019-02-28 11:11 | PN ---
Progess Note - Interim Date: 02/28/19 Time: 11:02 Narrative: 02/28/19 11:02 a.am. We decreased her insulin drip. We started her on diabetic diet. We have 10 unit of Humalog 15 minutes before her breakfast and stopped her insulin drip and IVF 30 minutes after. Her significant other brought in her Insulin pump and we started it before her snacks. Her pump settings shows a basal dose of 45 uis, , Bolus of 7.5 units, Carb to insulin ratio of 7.5 untis , BS goal of 140. 02/28/19 15:29 She got 81 grams of carbs fr lunch and she pumped in 10.6 units. Her BS at 3 p.m. is 85. She sasy she needs to be this controlled but she is not use to this level and w gave her milk with crackers. Her lactic acid is back to normal. We will discharge her today as she wants to go home.
[2019-02-28] MEDS: NORMAL SALINE IV SCH (15:13)
[2019-02-28] MEDS: POTASSIUM CHLORIDE IV SCH (15:13)
[2019-02-28 15:28] VITALS: BP 117/64
--- NOTE | 2019-02-28 15:44 | DS ---
(1) Diabetic hyperosmolar non-ketotic state Problem: Resolved (2) LIDA (acute kidney injury) Problem: Resolved (3) Dehydration Problem: Resolved (4) Elevated lactic acid level Problem: Resolved (5) Abdominal pain Problem: Resolved Date of Discharge:: 02/28/19 Description of Stay: Naya Cain is a 38-year-old white female with past medical history of diabetes mellitus type 1, bipolar disorder, ADD, chronic pancreatitis who was admitted on 02/27/2019 after presenting to the emergency room with a chief complaint "I think I have DKA". The patient just recently got discharged from "[facility] presumably for DKA 9 days ago. The patient says that because of her depression/bipolar disorder she sleeps most of the time and forgets to fill her insulin pump with medicine. Her blood sugar mostly are out of control. She denied any nausea or vomiting, diarrhea or constipation, shortness of breath, chest pain, fever or chills but admits to diffuse abdominal pain and hurting all over. In the emergency room her blood sugar was 1594, creatinine of 2, anion gap of 22.9, CO2 20.6, lactic acid of 12.5, HbA1c of 11.5 equivalent to mean blood glucose of 297, lipase of 42, normal WBC. She was negative for ketones in the serum and in the urine. Her urine drug screen was negative. Her ABG showed a pH of 7.39, PCO2 of 15.5, oxygen of 145.1, HCO3 of 9.2, oxygen saturation of 98.9%. She was given 10 units of IV regular insulin in the ER and was started on insulin drip. She was then admitted to the SCU unit. We kept aggressive IVF and tapered down the Insulin drip to prevent her from going down to fast. We transitioned her to sq insulin for breakfast and stoppedher IVF and drip 30 monutes after. She brought in her insulin pump and we restarted her back on that. She says she has a new psychiatrist and will follow up with him. Follow up with her PCP in 1 week. Procedures Performed: none Results and Findings: Lab Pending Results 02/27/19 15:25: WBC 7.6, RBC 4.91, Hgb 15.4, Hct 52.5 H, MCV 106.9 H, MCH 31.4 H, MCHC 29.3 L, RDW 13.4, Plt Count 303, MPV 12.3, Immature Gran % (Auto) 0.40, Immature Gran # (Auto) 0.03, Neutrophils % 86.2 H, Lymphocytes % 9.9 L, Monocytes % 3.2, Eosinophils % 0.0, Basophils % 0.3, Nucleated RBC % 0.0, Neutrophils # 6.5 H, Lymphocytes # 0.75 L, Monocytes # 0.2, Eosinophils # 0.0, Absolute Basophils 0.0 02/27/19 15:25: Sodium 120 L, Plasma Sodium 144 H, Potassium 4.5, Chloride 81 L, Carbon Dioxide 20.6 L, Anion Gap 22.9 H, BUN 27 H, Creatinine 2.00 H, Est GFR (Non-Af Amer) 30 L D, BUN/Creatinine Ratio 13.5, Random Glucose 1594 H, Calcium 9.8, Calcium Adj for Albumin 9.4, Total Bilirubin 0.1, AST 24, ALT 32, Alkaline Phosphatase 246 H, Total Protein 8.3 H, Albumin 4.1, Lipase 42 L, Ethyl Alcohol Less than 3.0, Serum Ketones Negative 02/27/19 15:25: Lactic Acid, Venous 12.5 H* 02/27/19 15:25: Serum HCG, Qual Negative 02/27/19 15:25: Mean Blood Glucose 297, Hemoglobin A1c 11.5 H 02/27/19 15:25: Magnesium 2.0 02/27/19 15:44: Urine Color Yellow, Urine Appearance Clear, Urine pH 5.5, Ur Specific Egan 1.005, Urine Protein Negative, Urine Glucose (UA) >=1000 H, Urine Ketones Negative, Urine Blood Negative, Urine Nitrate Negative, Urine Bilirubin Negative, Urine Urobilinogen Normal, Ur Leukocyte Esterase Negative, Urine RBC None seen, Urine WBC 0-5, Ur Epithelial Cells None seen, Urine Bacteria None seen, Urine Culture Comments No culture indicated 02/27/19 15:44: Urine Opiates Screen Negative, Barbiturate Screen Negative, Ur Phencyclidine Scrn Negative, Urine Amphetamine Negative, U Benzodiazepines Scrn Negative, Urine Cocaine Screen Negative, Urine Marijuana (THC) Negative 02/27/19 15:47: pCO2 15.5 L*, pO2 145.1 H, HCO3 9.2 L, Total CO2 9.7 L, Base Excess -12.5 L, ABG pH 7.39, ABG O2 Sat (Measured) 98.9 H 02/27/19 18:15: Lactic Acid, Venous 9.0 H* 02/27/19 18:50: Sodium 125 L, Plasma Sodium 137, Potassium 4.3, Chloride 91 L, Carbon Dioxide 14.8 L, Anion Gap 23.5 H, BUN 21, Creatinine 1.44 H D, Est GFR (Non-Af Amer) 43 L D, BUN/Creatinine Ratio 14.6, Random Glucose 872 H D, Calcium 9.2, Calcium Adj for Albumin 9.3, Total Bilirubin 0.2, AST 23, ALT 28, Alkaline Phosphatase 189 H, Total Protein 7.3, Albumin 3.5 02/27/19 21:50: Sodium 135, Plasma Sodium 140, Potassium 4.1, Chloride 101, Carbon Dioxide 26.3, Anion Gap 11.8, BUN 16, Creatinine 0.94, Est GFR (Non-Af Amer) 71 D, BUN/Creatinine Ratio 17.0, Random Glucose 388 H D, Calcium 8.6 02/28/19 05:45: Sodium 138, Plasma Sodium 138, Potassium 3.3 L, Chloride 105, Carbon Dioxide 27.0, Anion Gap 9.3, BUN 10, Creatinine 0.60, Est GFR (Non-Af Amer) 119 D, BUN/Creatinine Ratio 16.7, Random Glucose 87 D, Calcium 7.8 L 02/28/19 05:45: WBC 11.9 H D, RBC 3.52 L, Hgb 10.9 L, Hct 31.6 L, MCV 89.8, MCH 31.0, MCHC 34.5, RDW 12.6, Plt Count 195, MPV 11.0, Immature Gran % (Auto) 0.30, Immature Gran # (Auto) 0.04 H, Neutrophils % 53.1, Lymphocytes % 41.8, Monocytes % 4.0, Eosinophils % 0.5, Basophils % 0.3, Nucleated RBC % 0.0, Neutrophils # 6.3 H, Lymphocytes # 4.98 H, Monocytes # 0.5, Eosinophils # 0.1, Absolute Basophils 0.0 02/28/19 08:09: Lactic Acid, Venous 3.0 H* 02/28/19 10:56: Lactic Acid, Venous 1.7 Discharge Location: Home Disposition: Home self-care Condition: Stable Discharge Activity: Activity as tolerated Discharge Diet: Consistent carbs Problem Oriented Discharge Instructions to Patient/Family: Hyperglycemia, [id number], Type 2 Diabetes Mellitus, Adult, [id number] Additional Patient Instructions (free text): Follow up with her Psychiatrist on her appointment date. Follow up with her PCP in 1 week. Prescriptions (Any new or edited meds): Acetaminophen [Tylenol] 650 mg PO Q6H PRN #30 tablet PRN Reason: Mild Pain (Pain Scale 1-3) Complete Home Medications List: Complete Home Medication List: Lisdexamfetamine Dimesylate [Vyvanse] 40 mg PO DAILY 12/30/15 OLANZapine [Zyprexa] 20 mg PO DAILY 12/30/15 Albuterol Sulfate [Proair Hfa] 2 puff IH Q4H PRN #1 inhaler 04/22/17 Doxepin HCl [Sinequan] 100 mg PO HS 02/27/19 Ranitidine HCl 300 mg PO BID 02/27/19 traZODone HCL [Trazodone HCl] 200 mg PO HS 02/27/19 Acetaminophen [Tylenol] 650 mg PO Q6H PRN #30 tablet 02/28/19
== END 2019-02-28 16:58 | disposition home or self-care (01) | DRG 638 ==
LOC: ER 14:48 → SCU 18:23
PROVIDERS: ADMIT Internal Medicine; ATTEND Internal Medicine
CPT/HCPCS: 36415; 36600; 71010; 71045; 74176; 80048; 80053; 80307; 80320; 81001; 82009; 82803; 83036; 83605; 83690; 83735; 84703; 85025; 87040; 93005; 96365; 96375; 96376; 99285; G0481; J0131